=== PATIENT | male | born 1990 | race Caucasian/White ===

== ENCOUNTER 2020-08-23 12:19 | Emergency (ER) | payer OTHER ==
[~2020-08-23] VITALS: Ht 175.3 cm; Wt 63.9 kg
--- NOTE | 2020-08-23 13:23 | NUR ---
DR FUNES AT BS FOR EXAM
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
--- NOTE | 2020-08-23 13:59 | NUR ---
TO CT PER CECILIO
[2020-08-23] MEDS ORDERED: KETOROLAC 30 MG/1 ML IM ONE (14:30)
[2020-08-23] MEDS ORDERED: HYDROcodone/APAP 5/325 TABLET PO ONE (14:30)
--- NOTE | 2020-08-23 14:49 | NUR ---
REPORT FROM NANO VENTURA
[2020-08-23] MEDS ORDERED: KETOROLAC 30 MG/1 ML ONE (14:52)
[2020-08-23] MEDS ORDERED: HYDROcodone/APAP 5/325 TABLET ONE (14:52)
[2020-08-23 14:57] VITALS: BP 124/72
== END 2020-08-23 15:38 | disposition home or self-care (01) ==
LOC: ED 14:52
DX: S06.0X0A Concussion without loss of consciousness, initial encounter (principal); R42 Dizziness and giddiness; H93.12 Tinnitus, left ear; W18.30XA Fall on same level, unspecified, initial encounter; Y93.89 Activity, other specified; Y92.328 Other athletic field as the place of occurrence of the external cause; Y99.8 Other external cause status
CPT/HCPCS: 70450; 96372; 99284; J1885